=== PATIENT | male | born 1950 | race Caucasian/White ===

== ENCOUNTER 2020-11-01 13:29 | Emergency (ER) | payer OTHER ==
[2020-11-01 14:26] LABS: Absolute Lymphocytes (CBC) 1.6 K/uL (0.7-4.9); Basophils % 0.3 % (0-1.3); Hematocrit 44.2 % (39.6-49.0); Lymphocytes % 23.1 % (15.3-44.8); RBC Red Blood Cell Count 5.06 M/uL (4.33-5.43)
[2020-11-01 14:41] LABS: Protime INR 1.05
[2020-11-01 14:43] LABS: ALT/SGPT 56 U/L (12-78); AST/SGOT 27 U/L (15-37); Albumin 3.3 g/dL (3.4-5.0); Alkaline Phosphatase 113 U/L (45-117); BUN Blood Urea Nitrogen 14 mg/dL (7-18); Bicarbonate 29 mmol/L (21-32); Bilirubin Direct < 0.1 mg/dL (0-0.2); Bilirubin Total 0.3 mg/dL (0.2-1.0); Glucose Level 135 mg/dL (74-106); Magnesium 2.1 mg/dL (1.8-2.4); NT PRO-BNP 259 pg/mL (<125); Protein, Total 6.9 g/dL (6.4-8.2); Sodium Level 143 mmol/L (136-145); Troponin (Emerg Dept Use Only) < 0.02 ng/mL (0.0-0.045)
--- NOTE | 2020-11-01 14:51 | RAD REPORT ---
EXAM DESCRIPTION: CT - Head Brain Wo Cont - 11/01/2020 2:35 pm CLINICAL HISTORY: Dizziness COMPARISON: None TECHNIQUE: Computed axial tomography of the head was obtained. IV contrast was not requested. All CT scans are performed using dose optimization technique as appropriate and may include automated exposure control or mA/KV adjustment according to patient size. FINDINGS: An intracranial bleed is not seen . The ventricles are normal in caliber. No extra-axial fluid collection is noted. 3 centimeter low density area is present within the left basal ganglia extending superiorly Fluid within the sinuses/ mastoids is not seen. IMPRESSION: A 3 centimeter low-density area within the left basal ganglia extending superiorly may r epresent a mass with surrounding edema. An infarction is another consideration. It is recommended michele t the patient have an MRI brain with contrast for further evaluation
--- NOTE | 2020-11-01 15:17 | RAD REPORT ---
EXAM DESCRIPTION: Dari Single View11/01/2020 2:17 pm CLINICAL HISTORY: Shortness of breath COMPARISON: none FINDINGS: The lungs appear clear of acute infiltrate. The heart is normal size IMPRESSION: No acute abnormalities displayed
--- NOTE | 2020-11-01 19:27 | RAD REPORT ---
EXAM DESCRIPTION: MRI - Brain W/Wo Cont - 11/01/2020 7:04 pm CLINICAL HISTORY: Right-sided weakness. Difficulty speaking COMPARISON: November 01, 2020 cat scan TECHNIQUE: Axial, sagittal, and coronal magnetic images of the brain were obtained. 20 cc MultiHance administered intravenously FINDINGS: A 4 centimeter peripherally enhancing mass is present within the left basal ganglia, left internal capsule and white matter of the left parietal lobe. The a central portion does not enhance a nd is probably necrotic. There is slight compression of the lateral ventricle. Shift of the midline s tructures to the right 2 millimeters. No significant surrounding edema. 2 centimeter enhancing mass left temporal lobe without surrounding vasogenic edema The ventricles are normal in caliber. Diffusion-weighted/ ADC mapping sequences do not demonstrate evidence of an acute infarction. An extra-axial fluid collection is not noted. Fluid within the sinuses/mastoids is not seen IMPRESSION: 4 centimeter peripherally enhancing mass left basal ganglia, left internal capsule white matter left parietal lobe. 2 centimeter uniformly enhancing mass left temporal lobe. These could represent metastases. Another consideration is that this represents multicentric glioblas licha multiform
--- NOTE | 2020-11-01 22:03 | ER ---
Nurse's Notes [facility] Name: Zachery Parks Age: 70 yrs Sex: Male : 1950 Arrival Date: 11/01/2020 Time: 13:41 Bed 7 Private MD: Diagnosis: Malignant neoplasm of brain, unspecified Presentation: 11/01 13:49 Chief complaint: Patient states: "i still feel like something is just not right with me tw2 and i just cant remember things" EMS states: pt has noted increased confusion and other neurological symptoms the passed 2 weeks, [facility] the staff noted slurred speech as well and that he was stuttering which he normally doesn't do, vs stable, bgl 161, he is oriented c/o visual deficits, abnormal gait and right sided weakness. Coronavirus screen: At this time, the client does not indicate any symptoms associated with coronavirus-19. Ebola Screen: Patient denies travel to an Ebola-affected area in the 21 days before illness onset. Initial Sepsis Screen: Does the patient meet any 2 criteria? No. Patient's initial sepsis screen is negative. Does the patient have a suspected source of infection? No. Patient's initial sepsis screen is negative. Risk Assessment: Do you want to hurt yourself or someone else? Patient reports no desire to harm self or others. Onset of symptoms was November 01, 2020. 13:49 Method Of Arrival: EMS: [facility] tw2 13:49 Acuity: COLETTE 3 tw2 Triage Assessment: 22:02 General: Appears in no apparent distress. comfortable, Behavior is cooperative. Pain: mg2 Denies pain. Stroke Activation: Symptom onset > 6 hours Physician: Stroke Attending; Name: ; Notified At: ; Arrived At: Physician: Chief Stroke Resident; Name: ; Notified At: ; Arrived At: Physician: Stroke Resident; Name: ; Notified At: ; Arrived At: Physician: ED Attending; Name: ; Notified At: ; Arrived At: Physician: ED Resident; Name: ; Notified At: ; Arrived At: Historical: - Allergies: 14:30 Bactrim; tw2 14:30 Penicillins; tw2 14:30 Sulfa (Sulfonamide Antibiotics); tw2 - Home Meds: 15:58 aspirin 81 mg Oral chew 1 tab once daily [Active]; atorvastatin 80 mg oral tab 1 tab tw2 once daily [Active]; benzonatate 100 mg oral cap 1 cap 3 times per day [Active]; bupropion HCl 150 mg Oral TbER 1 tab 2 times per day [Active]; carvedilol 12.5 mg oral tab 1 tab 2 times per day [Active]; cholecalciferol (vitamin D3) 2,000 unit oral tab [Active]; empagliflozin oral 25 mg oral 0.5 tab once daily for Type 2 Diabetes Mellitus [Active]; finasteride 5 mg oral tab 1 tab once daily [Active]; gabapentin 600 mg oral tab 1 tab 3 times per day [Active]; Insulin Glargine Sub-Q [Active]; Lactobacillus acidophilus oral cap [Active]; losartan 50 mg oral tab 1 tab 2 times per day [Active]; metformin 500 mg Oral TG24 2 tabs 2 times per day [Active]; omeprazole 20 mg Oral cpDR 1 cap once daily [Active]; risperidone 2 mg oral tab 1 tab once daily [Active]; tamsulosin 0.4 mg oral cp24 1 cap once daily [Active]; venlafaxine 150 mg oral cp24 1 cap once daily [Active]; - PMHx: 14:30 CAD; Obesity; hip pain; BPH; opiod dependence; Diabetes - IDDM; Hypertension; PTSD; tw2 - Immunization history:: Adult Immunizations. - Social history:: Smoking status: . Screenin:47 Abuse screen: Denies threats or abuse. Nutritional screening: No deficits noted. tw2 Tuberculosis screening: No symptoms or risk factors identified. Fall Risk None identified. Assessment: 14:00 Patient has been NPO before screening. The patient is alert, and able to follow tw2 commands. The patient does not exhibit slurred or garbled speech. The patient is not exhibiting difficulty speaking. The patient does not exhibit difficulty understanding words. The patient is able to swallow own secretions with no drooling or need for suction. Patient tolerated one teaspoon of water. No drooling, immediate coughing, gurgling, or clearing of the throat was noted. The patient tolerated 90mL of water. No drooling, immediate coughing, gurgling, or clearing of the throat was noted. The patient passed the bedside swallow screening. Oral medications may be given as ordered. Contact Physician for further diet orders. Provider notified of bedside swallow screening results: Damian FAITH. 18:18 Reassessment: Patient appears in no apparent distress at this time. Patient and/or tw2 family updated on plan of care and expected duration. Pain level reassessed. Patient is alert, oriented x 3, equal unlabored respirations, skin warm/dry/pink. pt states "i am tired of waiting her, nobody is talking to me", pt educated as to the need to wait for MRI at this time as another pt is on the exam, pt given snacks prior to MRI coming the first time approx 1 hour ago. 19:34 Reassessment: Patient appears in no apparent distress at this time. Patient and/or mg2 family updated on plan of care and expected duration. Pain level reassessed. Patient is alert, oriented x 3, equal unlabored respirations, skin warm/dry/pink. 21:08 Reassessment: Saritha [facility] center states that the [facility] sg are at capacity and are not accepting this patient at this time. 22:46 Reassessment: report given to ROBBIE Guevara of IMU \\\\[facility]. patient mg2 signed the consent for transfer. 23:30 Reassessment: report given to [facility], Patient AOx4, IV intact. mg2 Vital Signs: 13:49 BP 141 / 66; Pulse 67; Resp 12; Temp 98.6(O); Pulse Ox 97% on R/A; Weight 102.06 kg tw2 (R); Height 5 ft. 8 in. (172.72 cm) (R); 17:17 BP 145 / 82; Pulse 61; Resp 14; Pulse Ox 99% on R/A; mt 18:18 BP 158 / 77; Pulse 57; Resp 17; Pulse Ox 97% on R/A; tw2 21:44 BP 168 / 78; Pulse 64; Resp 16; Temp 98.2; Pulse Ox 98% on R/A; rv 13:49 Body Mass Index 34.21 (102.06 kg, 172.72 cm) tw2 NIH Stroke Scale Scores: 21:33 NIHSS Score: 3 jr8 ED Course: 13:41 Patient arrived in ED. ss 13:48 Bev Mills, ROBBIE is Primary Nurse. tw2 13:53 Triage completed. tw2 13:54 Damian Tejada PA is PHCP. jr8 13:54 Adriel Reveles MD is Attending Physician. jr8 14:00 Inserted saline lock: 20 gauge in left forearm, using aseptic technique. Blood tw2 collected. Maintain EMS IV. Dressing intact. Site clean \\T\\ dry. Gauge \\T\\ site: 18 g. 14:17 XRAY Chest (1 view) In Process Unspecified. EDMS 14:32 CT Head Brain wo Cont In Process Unspecified. EDMS 14:59 Arm band placed on. tw2 15:13 EKG done, by ED staff, reviewed by Damian FAITH. mt 15:49 Bed in low position. Call light in reach. Side rails up X2. cardiac monitor on. Pulse tw2 ox on. NIBP on. 18:37 Patient moved to MRI via wheelchair. tw2 19:01 MRI - Brain W/Wo Cont In Process Unspecified. EDMS 19:14 Primary Nurse role handed off by Bev Mills RN eb 19:34 Jonathan Miller, ROBBIE is Primary Nurse. mg2 20:08 initiated a transfer with Jov[facility]. mw2 20:09 faxed patient's clinicals to the [facility]. fax # [phone]. mw2 20:56 initiated a transfer with Saritha Garcia from [facility] [place]. mw2 21:33 initiated a transfer with Larisa from [facility] [place]. mw2 21:57 doc to doc with the hospitalist from [facility]. mw2 22:03 No provider procedures requiring assistance completed. patient removed his IV. mg2 22:16 administrative approval given by Larisa Monroe/ patient has been accepted to [address]/ Dr. Zimmerman has accepted the patient in transfer/ report to be called to [phone]. 22:48 Inserted saline lock: 20 gauge in left forearm, using aseptic technique. mg2 Administered Medications: No medications were administered Outcome: 22:03 ER care complete, transfer ordered by . ma2 23:33 Transferred by ground EMS to [facility], Transfer form completed. mg2 23:33 Condition: stable 23:33 Instructed on the need for transfer, Demonstrated understanding of instructions. 23:34 Patient left the ED. mg2 NIH Stroke Scale - NIH Stroke Score Date: 11/01/2020 Time: 21:33 Total Score = 3 1a. Level of Consciousness (LOC) - 0(Alert) 1b. Level of Consciousness (LOC) (Year \\T\\ Age) - 0(Both) 1c. LOC Commands (Open \\T\\ Closes Eyes/Claim Professional) - 0(Both) 2. Best Gaze (Lateral Gaze Paresis) - 0(Normal) 3. Visual Field Loss - 0(No visual loss) 4. Facial Palsy - 0(Normal) 5a. Left Arm: Motor (10-second hold) - 0(No drift) 5b. Right Arm: Motor (10-second hold) - 0(No drift) 6a. Left Leg: Motor (5-second hold - always test supine) - 0(No drift) 6b. Right Leg: Motor (5-second hold - always test supine) - 0(No drift) 7. Limb Ataxia (finger/nose \\T\\ heel/carroll - test with eyes open) - 2(Present in two limbs) 8. Sensory Loss (pinprick arms/legs/face) - 1(Mild to moderate loss) 9. Best Language: Aphasia (description/naming/reading) - 0(No aphasia) 10. Dysarthria (speech clarity - read or repeat words) - 0(Normal) 11. Extinction and Inattention (visual/tactile/auditory/spatial/personal) - 0(No abnormality) Initials: gail Signatures: Dispatcher [employer] Edu Linder RN ROBBIE Carolin Ardon RN RN ss Damian Tejada PA PA jr8 Bev Mills RN RN [facility] Chary lAdridge mt, Mohammad, MD MD [facility] Jessika Garsia 2 Ella Syed Michele, RN RN [facility] Philip Sears RN RN rv Corrections: (The following items were deleted from the chart) 22:30 22:28 administrative approval given by Larisa Monroe/ patient has been mw2 accepted to [facility]/ Dr. Zimmerman has accepted the patient in transfer/ report to be called to [phone] [facility]
--- NOTE | 2020-11-01 22:03 | EDPHYS ---
Physician Documentation [facility] Name: Zachery Parks Age: 70 yrs Sex: Male : 1950 Arrival Date: 11/01/2020 Time: 13:41 Bed 7 Private MD: ED Physician Adriel Reveles HPI: 11/01 17:28 This 70 yrs old Male presents to ER via EMS with complaints of Slurred Speech.jr8 17:28 The patient presents to the emergency department with a speech or higher order brain jr8 function problem, aphasia, that is moderate, difficult walking, the patient is off balance. Onset: The symptoms/episode began/occurred gradually, 1 week(s) ago, and became worse. Context: occurred at home. Associated signs and symptoms: The patient has no apparent associated signs or symptoms. Severity of symptoms: At their worst the symptoms were moderate in the emergency department the symptoms are unchanged. Patient's baseline: Neuro: alert and fully oriented, Motor: no deficits, Ambulation: walks without assistance, Speech: normal. The patient has not experienced similar symptoms in the past. 21:33 The patient has not recently seen a physician. jr8 Historical: - Allergies: 14:30 Bactrim; tw2 14:30 Penicillins; tw2 14:30 Sulfa (Sulfonamide Antibiotics); tw2 - Home Meds: 15:58 aspirin 81 mg Oral chew 1 tab once daily [Active]; atorvastatin 80 mg oral tab 1 tab tw2 once daily [Active]; benzonatate 100 mg oral cap 1 cap 3 times per day [Active]; bupropion HCl 150 mg Oral TbER 1 tab 2 times per day [Active]; carvedilol 12.5 mg oral tab 1 tab 2 times per day [Active]; cholecalciferol (vitamin D3) 2,000 unit oral tab [Active]; empagliflozin oral 25 mg oral 0.5 tab once daily for Type 2 Diabetes Mellitus [Active]; finasteride 5 mg oral tab 1 tab once daily [Active]; gabapentin 600 mg oral tab 1 tab 3 times per day [Active]; Insulin Glargine Sub-Q [Active]; Lactobacillus acidophilus oral cap [Active]; losartan 50 mg oral tab 1 tab 2 times per day [Active]; metformin 500 mg Oral TG24 2 tabs 2 times per day [Active]; omeprazole 20 mg Oral cpDR 1 cap once daily [Active]; risperidone 2 mg oral tab 1 tab once daily [Active]; tamsulosin 0.4 mg oral cp24 1 cap once daily [Active]; venlafaxine 150 mg oral cp24 1 cap once daily [Active]; - PMHx: 14:30 CAD; Obesity; hip pain; BPH; opiod dependence; Diabetes - IDDM; Hypertension; PTSD; tw2 - Immunization history:: Adult Immunizations. - Social history:: Smoking status: . ROS: 21:33 Eyes: Negative for injury, pain, redness, and discharge, ENT: Negative for injury, jr8 pain, and discharge, Neck: Negative for injury, pain, and swelling, Cardiovascular: Negative for chest pain, palpitations, and edema, Respiratory: Negative for shortness of breath, cough, wheezing, and pleuritic chest pain, Abdomen/GI: Negative for abdominal pain, nausea, vomiting, diarrhea, and constipation, Back: Negative for injury and pain, MS/Extremity: Negative for injury and deformity, Skin: Negative for injury, rash, and discoloration. 21:33 Neuro: Positive for gait disturbance, speech changes. Exam: 21:33 Eyes: Pupils equal round and reactive to light, extra-ocular motions intact. Lids and jr8 lashes normal. Conjunctiva and sclera are non-icteric and not injected. Cornea within normal limits. Periorbital areas with no swelling, redness, or edema. ENT: Nares patent. No nasal discharge, no septal abnormalities noted. Tympanic membranes are normal and external auditory canals are clear. Oropharynx with no redness, swelling, or masses, exudates, or evidence of obstruction, uvula midline. Mucous membranes moist. Neck: Trachea midline, no thyromegaly or masses palpated, and no cervical lymphadenopathy. Supple, full range of motion without nuchal rigidity, or vertebral point tenderness. No Meningismus. Cardiovascular: Regular rate and rhythm with a normal S1 and S2. No gallops, murmurs, or rubs. Normal PMI, no JVD. No pulse deficits. Respiratory: Lungs have equal breath sounds bilaterally, clear to auscultation and percussion. No rales, rhonchi or wheezes noted. No increased work of breathing, no retractions or nasal flaring. Abdomen/GI: Soft, non-tender, with normal bowel sounds. No distension or tympany. No guarding or rebound. No evidence of tenderness throughout. Back: No spinal tenderness. No costovertebral tenderness. Full range of motion. Skin: Warm, dry with normal turgor. Normal color with no rashes, no lesions, and no evidence of cellulitis. MS/ Extremity: Pulses equal, no cyanosis. Neurovascular intact. Full, normal range of motion. 21:33 Neuro: Orientation: to person, place, time \T\ situation. Mentation: is normal, Memory: immediate memory is intact, remote memory is intact. recent memory is intact, Cranial nerves: CN I not tested, CN II- XII are normal as tested, visual sharma are intact. extraocular movements are intact, Facial palsy and sensory deficits are absent. Speech is expressive aphasia present. Tongue strength is normal, Cerebellar function: dysmetria is noted on the right, the patient is unable to track right heel to left carroll, Motor: moves all fours, Sensation: no obvious gross deficits, Gait: is unsteady, seizure activity, is not displayed by the patient, Abnormal movements: there are no abnormal movements. Vital Signs: 13:49 BP 141 / 66; Pulse 67; Resp 12; Temp 98.6(O); Pulse Ox 97% on R/A; Weight 102.06 kg tw2 (R); Height 5 ft. 8 in. (172.72 cm) (R); 17:17 BP 145 / 82; Pulse 61; Resp 14; Pulse Ox 99% on R/A; mt 18:18 BP 158 / 77; Pulse 57; Resp 17; Pulse Ox 97% on R/A; tw2 21:44 BP 168 / 78; Pulse 64; Resp 16; Temp 98.2; Pulse Ox 98% on R/A; rv 13:49 Body Mass Index 34.21 (102.06 kg, 172.72 cm) tw2 NIH Stroke Scale Scores: 21:33 NIHSS Score: 3 jr8 MDM: 13:54 Patient medically screened. jr8 21:36 Data reviewed: vital signs, nurses notes, lab test result(s), EKG, radiologic studies, jr8 CT scan, MRI, plain films. Data interpreted: Pulse oximetry: on room air is 97 %. Interpretation: normal. Counseling: I had a detailed discussion with the patient and/or guardian regarding: the historical points, exam findings, and any diagnostic results supporting the discharge/admit diagnosis, lab results, radiology results, the need to transfer to another facility, [facility] does not immediately have the required specialist. ED course: [facility] for neuro ICU. 21:58 ED course: accepted by dr. Raúl redd at [facility]. [facility] 11/01 13:55 Order name: Basic Metabolic Panel [facility] 11/01 13:55 Order name: CBC with Diff 11/01 13:55 Order name: LFT's; Complete Time: 14:56 [facility] 11/01 13:55 Order name: Magnesium; Complete Time: 14:56 [facility] 11/01 13:55 Order name: NT PRO-BNP; Complete Time: 14:56 11/01 13:55 Order name: PT-INR; Complete Time: 14:56 [facility] 11/01 13:55 Order name: Troponin (emerg Dept Use Only); Complete Time: 14:56 [facility] 11/01 13:55 Order name: XRAY Chest (1 view); Complete Time: 15:34 11/01 13:55 Order name: CT Head Brain wo Cont; Complete Time: 14:56 [facility] 11/01 13:55 Order name: Basic Metabolic Panel; Complete Time: 14:56 [facility] 11/01 13:55 Order name: CBC with Automated Diff; Complete Time: 14:56 [facility] 11/01 20:38 Order name: SARS-COV-2 RT PCR; Complete Time: 20:45 [place] 11/01 13:55 Order name: EKG; Complete Time: 13:56 11/01 13:55 Order name: Cardiac monitoring; Complete Time: 15:05 11/01 13:55 Order name: EKG - Nurse/Tech; Complete Time: 15:13 11/01 13:55 Order name: IV Saline Lock; Complete Time: 15:05 11/01 13:55 Order name: Labs collected and sent; Complete Time: 15:05 11/01 13:55 Order name: O2 Per Protocol; Complete Time: 15: 11/01 13:55 Order name: O2 Sat Monitoring; Complete Time: 15:11/01 14:57 Order name: MRI - Brain W/Wo Cont; Complete Time: 19:28 jr8 Administered Medications: No medications were administered Disposition: 22:03 Co-signature as Attending Physician, Ariane Joy MD I agree with the assessment ma2 and plan of care. Disposition: 11/01/20 22:03 Transfer ordered to [facility]. Diagnosis is Malignant neoplasm of brain, unspecified. - Reason for transfer: Higher level of care. - Accepting physician is accepted by dr. Arambula . - Condition is Stable. - Problem is new. - Symptoms are unchanged. NIH Stroke Scale - NIH Stroke Score Date: 11/01/2020 Time: 21:33 Total Score = 3 1a. Level of Consciousness (LOC) - 0(Alert) 1b. Level of Consciousness (LOC) (Year \T\ Age) - 0(Both) 1c. LOC Commands (Open \T\ Closes Eyes/Staff Anesthetist) - 0(Both) 2. Best Gaze (Lateral Gaze Paresis) - 0(Normal) 3. Visual Field Loss - 0(No visual loss) 4. Facial Palsy - 0(Normal) 5a. Left Arm: Motor (10-second hold) - 0(No drift) 5b. Right Arm: Motor (10-second hold) - 0(No drift) 6a. Left Leg: Motor (5-second hold - always test supine) - 0(No drift) 6b. Right Leg: Motor (5-second hold - always test supine) - 0(No drift) 7. Limb Ataxia (finger/nose \T\ heel/carroll - test with eyes open) - 2(Present in two limbs) 8. Sensory Loss (pinprick arms/legs/face) - 1(Mild to moderate loss) 9. Best Language: Aphasia (description/naming/reading) - 0(No aphasia) 10. Dysarthria (speech clarity - read or repeat words) - 0(Normal) 11. Extinction and Inattention (visual/tactile/auditory/spatial/personal) - 0(No abnormality) Initials: jrElisha Signatures: Dispatcher [employer] Damian Butler PA PA jr8 Bev Mills RN RN tw2 Ariane Joy MD MD ma2 Jonathan Miller RN RN mg2 Corrections: (The following items were deleted from the chart) 15:02 14:56 Urine Culture+BA.LAB.BRZ ordered. EDMS EDMS 19:56 19:24 CORONAVIRUS+MR.LAB.BRZ ordered. EDMS EDMS 23:34 22:03 11/01/2020 22:03 Transfer ordered to [facility]. Diagnosis mg2 is Malignant neoplasm of brain, unspecified. Reason for transfer: Higher level of care. Accepting physician is accepted by dr. Arambula . Condition is Stable. Problem is new. Symptoms are unchanged. ma2
--- NOTE | 2020-11-02 11:12 | EKG ---
Test Date: 2020-11-01 Test Time: 15:08:52 Chiller Operator: REY MEASUREMENT RESULTS: Intervals: Rate: 62 MN: 146 QRSD: 110 QT: 428 QTc: 434 Fertile: P: 39 MN: 146 QRS: -11 T: 18 INTERPRETIVE STATEMENTS: Normal sinus rhythm Incomplete right bundle branch block Borderline ECG No previous ECG available for comparison Electronically Signed On 11-02-20 11:11:17 CDT by Colby Morales
[2020-11-02 17:10] VITALS: BP 168/78; TEMP 98.2; O2SAT 98
== END 2020-11-01 23:34 | disposition short-term general hospital (02) ==
LOC: ER 13:29
DX: C71.9 Malignant neoplasm of brain, unspecified (principal); I25.10 Atherosclerotic heart disease of native coronary artery without angina pectoris; E66.9 Obesity, unspecified; N40.0 Benign prostatic hyperplasia without lower urinary tract symptoms; E11.9 Type 2 diabetes mellitus without complications; Z20.822 Contact with and (suspected) exposure to COVID-19; Z79.4 Long term (current) use of insulin; I10 Essential (primary) hypertension; F43.10 Post-traumatic stress disorder, unspecified; Z68.34 Body mass index [BMI] 34.0-34.9, adult
CPT/HCPCS: 93005; 85025; 80048; 36415; 83735; 85610; 80076; 84484; 83880; 70450; 71045; 70553; 99285; U0003; A9577